=== PATIENT | male | born 1935 | race Caucasian/White ===

== ENCOUNTER 2018-10-25 07:40 | Outpatient (CLI) | payer MEDICARE ==
--- NOTE | 2018-10-25 09:19 | ULT ---
ABDOMINAL AORTIC ULTRASOUND: INDICATION: Abdominal aortic screening evaluation. Concern for aortic stenosis. FINDINGS: Overlying bowel gas slightly limits image detail of the luminal caliber of the aorta. No stacey aneur ysmal dilatation is evident. Proximal abdominal aorta measures 1.2 x 1.3 cm. The mid abdominal aorta measured 1.2 x 1.4 cm. The distal abdominal aorta measured 1.4 x 1.7 cm. IMPRESSION: 1. Limitations of the exam to evaluate the intraluminal caliber of the aorta. If there is concern f or aortic stenosis, a CTA examination of the abdomen and pelvis is recommended. 2. No stacey aneurysmal dilatation of the abdominal aorta. POS: TPC
== END 2018-10-25 07:41 | disposition home or self-care (01) ==
LOC: NAV ULT 07:40
PROVIDERS: ATTEND Orthopaedic Surgery Hand Surgery
DX: I35.0 Nonrheumatic aortic (valve) stenosis (principal)
CPT/HCPCS: 76775

== ENCOUNTER 2019-03-30 16:38 | Inpatient (IN) | payer MEDICARE ==
[2019-03-30] MEDS ORDERED: TYLENOL PO PRN (17:42)
[2019-03-30] MEDS ORDERED: Docusate 100 MG CAP PO PRN (17:44)
[2019-03-30] MEDS: metFORMIN 500 MG TAB PO SCH (20:48)
[2019-03-30] MEDS: Donepezil HCl 10 MG TAB PO SCH (20:48)
[2019-03-30] MEDS: Atorvastatin Calcium 40 MG TAB PO SCH (20:48)
[2019-03-31 05:53] LABS: #Basophils 0.1 thou/uL (0.0-0.2); #Eosinphils 0.6 thou/uL (0.0-0.7); #Lymphocytes 1.8 thou/uL (1.20-3.40); #Monocytes 0.6 thou/uL (0.11-0.59); #Neutrophils 3.9 thou/uL (1.40-6.50); %Basophils 0.9 % (0.0-1.0); %Eosinophils 8.8 % (0.0-10.0); %Monocytes 8.4 % (0.0-10.0); Hemoglobin 11.8 g/dL (14.0-18.0); Mean Corpuscular HGB CONC 32.1 g/dL (32.0-36.0); Mean Corpuscular Hemoglobin 29.8 pg (27.0-31.0); Mean Corpuscular Volume 92.9 fL (78.0-98.0); Mean Platelet Volume 7.7 fL (7.4-10.4); Platelet Count 201 thou/uL (130-400); RBC Distribution Width 12.2 % (11.5-14.5); Red Blood Cell (RBC) Count 3.96 mill/uL (4.70-6.10)
[2019-03-31 06:07] LABS: ALT (SGPT) 31 U/L (8-55); AST (SGOT) 23 U/L (5-34); Albumin 3.6 g/dL (3.4-4.8); Alkaline Phosphatase 96 U/L (40-150); Anion Gap 12 mmol/L (10-20); BUN (Urea Nitrogen) 19 mg/dL (8.4-25.7); Bilirubin, Total 0.5 mg/dL (0.2-1.2); Calc. Creatinine Clearance 54 mL/min (70-130); Calcium 9.6 mg/dL (7.8-10.44); Carbon Dioxide 26 mmol/L (23-31); Chloride 106 mmol/L (98-107); Estimated GFR-MDRD 56; Glucose 94 mg/dL (83-110); Protein, Total 5.6 g/dL (5.8-8.1); Sodium 140 mmol/L (136-145)
[2019-03-31] MEDS: Aspirin Chewable 81 MG TAB PO SCH (08:29)
[2019-03-31] MEDS: Tamsulosin HCl 0.4 MG CAP PO SCH (08:29)
[2019-03-31] MEDS: Donepezil HCl 10 MG TAB PO SCH ×2 (08:29→21:20)
[2019-03-31] MEDS: Citalopram 20 MG TAB PO SCH (08:29)
[2019-03-31] MEDS: metFORMIN 500 MG TAB PO SCH ×2 (08:30→21:20)
[2019-03-31] MEDS ORDERED: Prevnar 13-Val Conj/PF 0.5 ML SYRINGE IM ONE (09:00)
[2019-03-31] MEDS: MEMANTINE 28 MG PO SCH (09:53)
--- NOTE | 2019-03-31 10:39 | HP ---
CHIEF COMPLAINT: Dementia, frequent falls and deconditioning for therapy. BRIEF HISTORY: This is an 84-year-old male, who was admitted to [facility] after a fall. Initial concern was for CVA and he was admitted to the Stroke Unit. MRI of the brain showed volume loss without any evidence for hemorrhage or infarct. Echocardiogram showed preserved ejection fraction and diastolic dysfunction. Carotid artery ultrasound did not show any hemodynamically significant stenosis. Telemetry did not show any arrhythmia. He was felt to be a candidate for more therapy before discharge and so he was admitted here. The patient was seen on his way to therapy. He denies any questions or concerns. He does have a complex right arm fracture and currently in a brace from Orthopedic Surgery and has an outpatient appointment for followup. No family at bedside. PAST MEDICAL HISTORY: 1. Recent fall resulting in a proximal humerus shaft fracture as well as old right 5th through 8th rib fractures. 2. Hypertension. 3. Dyslipidemia. 4. Dementia. 5. Diabetes mellitus type 2. 6. Benign prostatic hypertrophy. 7. History of DVT. 8. Deconditioning. PAST SURGICAL HISTORY: 1. Appendectomy. 2. Right knee replacement. ALLERGIES: TO PENICILLIN. FAMILY HISTORY: Noncontributory to current admission. PSYCHOSOCIAL HISTORY: Denies any tobacco, alcohol, or recreational drug abuse. MEDICATIONS: He has been transferred here on the following medications, 1. Aspirin 81 mg daily. 2. Lipitor 40 mg daily. 3. Celexa 20 mg daily. 4. Colace 100 mg daily as needed. 5. Aricept 10 mg b.i.d. 6. Metformin 500 mg b.i.d. 7. Tylenol No. 4 q.6 p.r.n. 8. Namenda 28 mg ER daily. 9. Flomax 0.4 mg daily. REVIEW OF SYSTEMS: CARDIOVASCULAR: Denies any chest pain, shortness of breath, palpitations, PND, orthopnea, or pedal edema. RESPIRATORY: Denies any chronic cough, expectoration, or pleuritic type chest pain. GASTROINTESTINAL: Denies any nausea, vomiting, diarrhea, constipation, hematemesis, melena, or hematochezia. GENITOURINARY: Denies any frequency, urgency, dysuria, or hematuria. CENTRAL NERVOUS SYSTEM: Generalized weakness and frequent falls. Cognitive deficits, which are chronic. HEENT: Denies any difficulty in speech, vision, hearing, or swallowing. SKIN: Denies any rash. PHYSICAL EXAMINATION: GENERAL: Pleasant 84-year-old male, resting comfortably. Denies any concerns. VITAL SIGNS: He is afebrile, heart rate 58, respirations 18, oxygen saturation 93% on room air, and blood pressure is 161/82. HEENT: Normocephalic and atraumatic. Pupils are equally reactive to light and accommodation. NECK: No JVD, thyromegaly, cervical lymphadenopathy, or throat exudates. No carotid bruits. CARDIOVASCULAR: S1 and S2 plus. Rate and rhythm are regular. RESPIRATORY: Normal vesicular breath sounds heard in all lung sanchez. ABDOMEN: Soft, nontender. Bowel sounds heard in all quadrants. EXTREMITIES: Without cyanosis or clubbing. Right arm in a brace/splint. CENTRAL NERVOUS SYSTEM: Awake and responsive. Cognitive deficits, which are chronic. Generalized weakness. LABORATORY VALUES: White count was 7, H and H are 11.8 and 36.8. Sodium 140, potassium 4.0, BUN and creatinine are 19 and 1.24. Blood sugars are 93, 85, 91, 112, and 97. IMPRESSION: 1. Multiple recent falls and deconditioning for physical therapy. 2. Diabetes mellitus, type 2. 3. Hypertension. 4. Dyslipidemia. 5. Diastolic dysfunction in echocardiogram. 6. Benign prostatic hypertrophy. 7. Osteoarthritis. 8. Dementia. PLAN: 1. Continue current medication. Discharge medications from previous hospital. 2. 1800 calorie heart healthy ADA diet. 3. Accu-Cheks with sliding scale coverage. 4. Monitor blood pressure and adjust medications as needed. 5. DVT prophylaxis with PlexiPulses. 6. Decubitus precaution. 7. Stress ulcer prophylaxis. 8. PT/OT eval and treat. 9. Routine laboratory values. 10. Discussed with the patient and nursing in detail. All questions were answered. Job ID: [id number]
[2019-03-31] MEDS: Atorvastatin Calcium 40 MG TAB PO SCH (21:20)
[2019-04-01] MEDS: Aspirin Chewable 81 MG TAB PO SCH (09:03)
[2019-04-01] MEDS: Tamsulosin HCl 0.4 MG CAP PO SCH (09:03)
[2019-04-01] MEDS: Citalopram 20 MG TAB PO SCH (09:03)
[2019-04-01] MEDS: Donepezil HCl 10 MG TAB PO SCH ×2 (09:04→21:32)
[2019-04-01] MEDS: metFORMIN 500 MG TAB PO SCH ×2 (09:04→21:32)
[2019-04-01] MEDS: MEMANTINE 28 MG PO SCH (09:04)
--- NOTE | 2019-04-01 15:05 | PRG ---
DATE OF SERVICE: 04/01/2019 SUBJECTIVE: Mr. Quiroga is resting comfortably and denies any complaints, just finished his lunch. OBJECTIVE: VITAL SIGNS: He is afebrile. Heart rate 61, respirations 18, oxygen saturation 96% on room air, and blood pressure 142/70. CARDIOVASCULAR SYSTEM: S1 and S2 plus. RESPIRATORY SYSTEM: Normal vesicular breath sounds. ABDOMEN: Soft and nontender. Bowel sounds heard in all quadrants. EXTREMITIES: Without cyanosis or clubbing. CENTRAL NERVOUS SYSTEM: Awake and responsive. Generalized weakness. Grossly nonfocal. LABORATORY DATA: Blood sugars are 93, 131, 88, and 80. IMPRESSION: 1. Recent fall, resulting in proximal humeral shaft fracture. 2. Hypertension. 3. Dyslipidemia. 4. Diabetes mellitus type 2. 5. Benign prostatic hypertrophy. 6. Dementia. 7. Deconditioning. PLAN: 1. Continue current medications. 2. 1800-calorie heart-healthy ADA diet. 3. Accu-Cheks with sliding scale coverage. 4. Monitor blood pressure and adjust medications as needed. 5. Fall precautions. 6. Orthopedic precautions. 7. Routine laboratory values. 8. Physical therapy. 9. DVT and stress ulcer prophylaxis. The patient is active enough that he just needs PlexiPulse. Job ID: [id number]
[2019-04-01] MEDS: Atorvastatin Calcium 40 MG TAB PO SCH (21:32)
[2019-04-02] MEDS ORDERED: Acetaminophen/Codeine 30-300mg Tablet PO SCH (02:30)
[2019-04-02] MEDS: Donepezil HCl 10 MG TAB PO SCH ×2 (08:42→21:55)
[2019-04-02] MEDS: Tamsulosin HCl 0.4 MG CAP PO SCH (08:42)
[2019-04-02] MEDS: Aspirin Chewable 81 MG TAB PO SCH (08:42)
[2019-04-02] MEDS: Citalopram 20 MG TAB PO SCH (08:42)
[2019-04-02] MEDS: metFORMIN 500 MG TAB PO SCH ×2 (08:42→21:55)
[2019-04-02] MEDS: MEMANTINE 28 MG PO SCH (08:44)
--- NOTE | 2019-04-02 16:07 | PRG ---
DATE OF SERVICE: 04/02/2019 SUBJECTIVE: Mr. Quiroga is doing well. Denies any complaints. He is very happy with his progress and his care. No family at bedside. OBJECTIVE: VITAL SIGNS: He is afebrile, heart rate 58, respirations 18, oxygen saturation 96% on room air, and blood pressure 119/63. CARDIOVASCULAR: S1 and S2 plus. RESPIRATORY: Normal vesicular breath sounds. ABDOMEN: Soft and nontender. Bowel sounds heard in all quadrants. EXTREMITIES: Without cyanosis or clubbing. Right arm in specialized splint. CENTRAL NERVOUS SYSTEM: Awake and responsive. Generalized weakness. IMPRESSION: 1. Diabetes mellitus, type 2. 2. Hypertension. 3. Dyslipidemia. 4. Benign prostatic hypertrophy. 5. Deconditioning. 6. Recent fall with proximal humeral shaft fracture. PLAN: 1. Continue current medications. 2. 1800 calorie heart healthy ADA diet. 3. Accu-Cheks with sliding scale coverage. 4. Monitor blood pressure and adjust medications as needed. 5. Orthopedic precautions with use of splint at all times. 6. Physical therapy. 7. Routine laboratory values. 8. Discussed with the patient and nursing in detail. All questions were answered. Job ID: [id number]
[2019-04-02] MEDS: Atorvastatin Calcium 40 MG TAB PO SCH (21:55)
[2019-04-03] MEDS: Citalopram 20 MG TAB PO SCH (09:37)
[2019-04-03] MEDS: metFORMIN 500 MG TAB PO SCH ×2 (09:37→20:17)
[2019-04-03] MEDS: Aspirin Chewable 81 MG TAB PO SCH (09:37)
[2019-04-03] MEDS: Donepezil HCl 10 MG TAB PO SCH ×2 (09:37→20:17)
[2019-04-03] MEDS: Tamsulosin HCl 0.4 MG CAP PO SCH (09:38)
[2019-04-03] MEDS: MEMANTINE 28 MG PO SCH (09:41)
--- NOTE | 2019-04-03 12:48 | PRG ---
DATE OF SERVICE: 04/03/2019 SUBJECTIVE: Mr. Quiroga is up in the side of his bed, getting ready to eat his lunch. His spouse is in the room. They are happy with his progress. No concerns or questions. OBJECTIVE: VITAL SIGNS: He is afebrile, heart rate 60, respirations 18, oxygen saturation 98% on room air, blood pressure 133/75. CARDIOVASCULAR: S1 and s2 plus. RESPIRATORY: Normal vesicular breath sounds. ABDOMEN: Soft, nontender. Bowel sounds heard in all quadrants. EXTREMITIES: Without cyanosis or clubbing. Right arm in a complex brace. CENTRAL NERVOUS SYSTEM: Awake and responsive. Generalized weakness. IMPRESSION: 1. Recent fall with right humerus fracture. 2. Diabetes mellitus, type 2, well controlled. 3. Hypertension. 4. Dyslipidemia. 5. Benign prostatic hypertrophy. 6. Deconditioning. PLAN: 1. Continue current medications. 2. 1800-calorie heart healthy ADA diet. 3. Accu-Cheks with sliding scale coverage. 4. Orthopedic precautions. 5. Physical therapy. 6. DVT and stress ulcer prophylaxis. 7. Routine laboratory values. 8. Discussed with patient and family in detail. All questions were answered. His blood sugars are 100, 89, 94, 86, 126, and 92. Job ID: [id number]
[2019-04-03] MEDS: Atorvastatin Calcium 40 MG TAB PO SCH (20:17)
[2019-04-04] MEDS: Aspirin Chewable 81 MG TAB PO SCH (09:06)
[2019-04-04] MEDS: Citalopram 20 MG TAB PO SCH (09:07)
[2019-04-04] MEDS: Donepezil HCl 10 MG TAB PO SCH ×2 (09:07→20:42)
[2019-04-04] MEDS: Tamsulosin HCl 0.4 MG CAP PO SCH (09:07)
[2019-04-04] MEDS: metFORMIN 500 MG TAB PO SCH ×2 (09:07→20:42)
[2019-04-04] MEDS: MEMANTINE 28 MG PO SCH (09:08)
--- NOTE | 2019-04-04 13:21 | PRG ---
DATE OF SERVICE: 04/04/2019 SUBJECTIVE: Mr. Quiroga is doing well, resting in bed, just finished his lunch. He is happy with his progress. No family at bedside. OBJECTIVE: VITAL SIGNS: He is afebrile, heart rate 57, respirations 16, oxygen saturation 96% on room air, blood pressure 122/63. CARDIOVASCULAR SYSTEM: S1 and S2 plus. RESPIRATORY SYSTEM: Normal vesicular breath sounds. ABDOMEN: Soft and nontender. Bowel sounds heard in all quadrants. EXTREMITIES: Without cyanosis or clubbing. Right arm in a brace. CENTRAL NERVOUS SYSTEM: Awake and responsive. Generalized weakness. LABORATORY DATA: Blood sugars are 94, 87, 135, 87, and 89. IMPRESSION: 1. Status post fall and right humerus fracture. 2. Diabetes mellitus, type 2. 3. Hypertension. 4. Dyslipidemia. 5. BPH. 6. Deconditioning. 7. Mild dementia. PLAN: 1. Continue current medications. 2. 1800-calorie heart healthy ADA diet. 3. Accu-Cheks with sliding scale coverage. 4. Orthopedic precautions. 5. DVT and stress ulcer prophylaxis. The patient really does not need any due to him being pretty active. 6. Routine laboratory values. 7. Continue therapy. Job ID: [id number]
[2019-04-04] MEDS: Atorvastatin Calcium 40 MG TAB PO SCH (20:42)
[2019-04-05] MEDS: Donepezil HCl 10 MG TAB PO SCH ×2 (08:24→21:05)
[2019-04-05] MEDS: Citalopram 20 MG TAB PO SCH (08:24)
[2019-04-05] MEDS: Tamsulosin HCl 0.4 MG CAP PO SCH (08:24)
[2019-04-05] MEDS: Aspirin Chewable 81 MG TAB PO SCH (08:24)
[2019-04-05] MEDS: metFORMIN 500 MG TAB PO SCH ×2 (08:24→21:05)
[2019-04-05] MEDS: MEMANTINE 28 MG PO SCH (08:27)
--- NOTE | 2019-04-05 13:10 | PRG ---
DATE OF SERVICE: 04/05/2019 SUBJECTIVE: Mr. Quiroga is up in bed and just finished his lunch. He apparently has an appointment with his orthopedic surgeon for followup on his right humerus fracture. He denies any questions or concerns. No family at bedside. OBJECTIVE: VITAL SIGNS: He is afebrile. Heart rate 61, respirations 16, oxygen saturation 95% on room air, and blood pressure 123/60. CARDIOVASCULAR SYSTEM: S1 and S2 plus. RESPIRATORY SYSTEM: Normal vesicular breath sounds. ABDOMEN: Soft and nontender. Bowel sounds heard in all quadrants. EXTREMITIES: Without cyanosis or clubbing. Complex brace/splint to his right arm. CENTRAL NERVOUS SYSTEM: Awake and responsive. Generalized weakness. IMPRESSION: 1. Recent fall with right humerus fracture. 2. Diabetes mellitus, type 2. 3. Hypertension. 4. Dyslipidemia. 5. Benign prostatic hypertrophy. 6. Deconditioning. 7. Mild dementia. PLAN: 1. Continue current medications. 2. 1800 calorie heart healthy ADA diet. 3. Accu-Cheks with sliding scale coverage. His blood sugars are excellent at 89, 89, 75, 87, and 88. 4. Continue orthopedic precautions. 5. Fall precautions. 6. DVT and stress ulcer prophylaxis. 7. Routine laboratory values. 8. Continue therapy. Job ID: [id number]
[2019-04-05] MEDS: Atorvastatin Calcium 40 MG TAB PO SCH (21:05)
[2019-04-06] MEDS: Donepezil HCl 10 MG TAB PO SCH ×2 (08:49→20:29)
[2019-04-06] MEDS: Citalopram 20 MG TAB PO SCH (08:49)
[2019-04-06] MEDS: Tamsulosin HCl 0.4 MG CAP PO SCH (08:49)
[2019-04-06] MEDS: metFORMIN 500 MG TAB PO SCH ×2 (08:49→20:29)
[2019-04-06] MEDS: Aspirin Chewable 81 MG TAB PO SCH (08:50)
[2019-04-06] MEDS: MEMANTINE 28 MG PO SCH (08:53)
--- NOTE | 2019-04-06 14:11 | PRG ---
DATE OF SERVICE: 04/06/2019 SUBJECTIVE: Mr. Quiroga is doing the same. Denies any complaints. He had a followup appointment with Orthopedic Surgery yesterday. No family at bedside. OBJECTIVE: VITAL SIGNS: He is afebrile. Heart rate 90, respirations 18, oxygen saturation 95% on room air, and blood pressure 119/70. CARDIOVASCULAR SYSTEM: S1 and S2 plus. RESPIRATORY SYSTEM: Normal vesicular breath sounds. ABDOMEN: Soft and nontender. Bowel sounds heard in all quadrants. EXTREMITIES: Without cyanosis or clubbing. CENTRAL NERVOUS SYSTEM: Awake and responsive. Generalized weakness. LABORATORY DATA: Blood sugars are 88, 190, 91, 89, and 92. IMPRESSION: 1. Status post fall and right humerus fracture on conservative management at present. 2. Diabetes mellitus type 2. 3. Hypertension. 4. Dyslipidemia. 5. Benign prostatic hypertrophy. 6. Deconditioning. 7. Mild dementia. PLAN: 1. Continue current medications. 2. Nutritional support. 3. 1800-calorie heart healthy ADA diet. 4. Accu-Cheks with sliding scale coverage. 5. Physical Therapy. 6. Orthopedic precautions. 7. Routine laboratory values. Job ID: [id number]
[2019-04-06] MEDS: Atorvastatin Calcium 40 MG TAB PO SCH (20:29)
[2019-04-07] MEDS: Citalopram 20 MG TAB PO SCH (08:35)
[2019-04-07] MEDS: metFORMIN 500 MG TAB PO SCH ×2 (08:36→20:48)
[2019-04-07] MEDS: Donepezil HCl 10 MG TAB PO SCH ×2 (08:36→20:48)
[2019-04-07] MEDS: Aspirin Chewable 81 MG TAB PO SCH (08:36)
[2019-04-07] MEDS: Tamsulosin HCl 0.4 MG CAP PO SCH (08:36)
[2019-04-07] MEDS: MEMANTINE 28 MG PO SCH (08:41)
[2019-04-07] MEDS: Atorvastatin Calcium 40 MG TAB PO SCH (20:48)
[2019-04-08] MEDS: metFORMIN 500 MG TAB PO SCH ×2 (08:20→21:17)
[2019-04-08] MEDS: Tamsulosin HCl 0.4 MG CAP PO SCH (08:20)
[2019-04-08] MEDS: Donepezil HCl 10 MG TAB PO SCH ×2 (08:20→21:17)
[2019-04-08] MEDS: Aspirin Chewable 81 MG TAB PO SCH (08:20)
[2019-04-08] MEDS: Citalopram 20 MG TAB PO SCH (08:20)
[2019-04-08] MEDS: MEMANTINE 28 MG PO SCH (08:23)
[2019-04-08] MEDS: Atorvastatin Calcium 40 MG TAB PO SCH (21:17)
[2019-04-09] MEDS: Donepezil HCl 10 MG TAB PO SCH ×2 (09:18→20:50)
[2019-04-09] MEDS: Tamsulosin HCl 0.4 MG CAP PO SCH (09:18)
[2019-04-09] MEDS: metFORMIN 500 MG TAB PO SCH ×2 (09:18→20:49)
[2019-04-09] MEDS: Citalopram 20 MG TAB PO SCH (09:18)
[2019-04-09] MEDS: MEMANTINE 28 MG PO SCH (09:18)
[2019-04-09] MEDS: Aspirin Chewable 81 MG TAB PO SCH (09:18)
[2019-04-09 20:40] VITALS: BMI 26.6
[2019-04-09] MEDS: Atorvastatin Calcium 40 MG TAB PO SCH (20:50)
--- NOTE | 2019-04-09 21:19 | PRG ---
DATE OF SERVICE: 04/09/[address] Deysi Miles. SUBJECTIVE: The patient feels well with no complaints. Resting in the bed, waiting for more therapy tomorrow. Still has some soreness in his arm, but is stable. OBJECTIVE: VITAL SIGNS: Show temperature is 96.8, pulse 62, respirations 20, O2 sats 95% on room air, and blood pressure is 119/75. LUNGS: Clear. CARDIAC: Showed regular rhythm. SKIN AND EXTREMITIES: Right arm is in a clamshell splint. Skin and extremities showed no edema otherwise, clubbing, or cyanosis. ASSESSMENT: 1. Resolving right humeral fracture. 2. Stable hypertension. 3. Stable type 2 diabetes, controlled to goal. PLAN: 1. Continue PT/OT. 2. Continue pain relief as needed. 3. Continue Accu-Cheks to monitor and titrate and control diabetes. 4. Continue stress ulcer and DVT prophylaxis. Job ID: [id number]
--- NOTE | 2019-04-09 21:26 | PRG ---
DATE OF SERVICE: 04/08/2019 SUBJECTIVE: The patient is an 84-year-old white male, patient of Dr. Deysi Miles, admitted to [facility] for therapy after fall and right humerus fracture, on conservative management. He has done well with therapy and had a followup with Orthopedic Surgery recently who states to continue conservative treatment. He is working with therapy and he has a history of diabetes which has been well controlled. OBJECTIVE: VITAL SIGNS: Blood pressure is 132/75, temperature is 98, pulse 63, respirations 20, O2 sats 93% on room air. LUNGS: Clear. CARDIAC EXAMINATION: Shows regular rhythm. ABDOMEN: Soft and nontender. EXTREMITIES: Right arm is in a clamshell. ASSESSMENT: 1. Resolving right humeral fracture. 2. Stable type 2 diabetes with Accu-Cheks; controlled from 83 to 110. 3. Stable hypertension. 4. Stable benign prostatic hypertrophy. PLAN: 1. Continue PT/OT. 2. Continue Accu-Cheks to monitor and titrate and control diabetes. 3. Continue to monitor blood pressure and continue home medications. Job ID: [id number]
[2019-04-10] MEDS: metFORMIN 500 MG TAB PO SCH ×2 (09:00→21:05)
[2019-04-10] MEDS: Citalopram 20 MG TAB PO SCH (09:00)
[2019-04-10] MEDS: Tamsulosin HCl 0.4 MG CAP PO SCH (09:00)
[2019-04-10] MEDS: Aspirin Chewable 81 MG TAB PO SCH (09:00)
[2019-04-10] MEDS: Donepezil HCl 10 MG TAB PO SCH ×2 (09:00→21:06)
[2019-04-10] MEDS: MEMANTINE 28 MG PO SCH (09:03)
--- NOTE | 2019-04-10 13:51 | PRG ---
DATE OF SERVICE: 04/10/2019 SUBJECTIVE: Mr. Quiroga is doing well. Denies any complaints. He had a restful weekend. No family at bedside. Discussed with nursing. OBJECTIVE: VITAL SIGNS: He is afebrile, heart rate 59, respirations 18, oxygen saturation 93% on room air, blood pressure 113/69. CARDIOVASCULAR SYSTEM: S1 and S2 plus. RESPIRATORY SYSTEM: Normal vesicular breath sounds. ABDOMEN: Soft, nontender. Bowel sounds heard in all quadrants. EXTREMITIES: Without cyanosis or clubbing. Right arm in a brace. CENTRAL NERVOUS SYSTEM: Awake and responsive. Generalized weakness. LABORATORY DATA: Blood sugars are 98, 87, 122, 98, and 105. IMPRESSION: 1. Status post fall and right arm fracture, currently managed conservatively. 2. Diabetes mellitus, type 2. 3. Hypertension. 4. Dyslipidemia. 5. Benign prostatic hypertrophy. 6. Deconditioning. 7. Mild dementia. PLAN: 1. Continue current medications. 2. 1800-calorie heart healthy ADA diet. 3. Accu-Cheks with sliding scale coverage. 4. Orthopedic precautions. 5. Continue physical therapy and occupational therapy. 6. DVT prophylaxis, the patient is pretty active and does not need any. 7. Decubitus precaution. 8. Routine laboratory values. We will recheck CBC and BMP tomorrow. Job ID: [id number]
[2019-04-10] MEDS: Atorvastatin Calcium 40 MG TAB PO SCH (21:05)
[2019-04-11 05:58] LABS: #Basophils 0.1 thou/uL (0.0-0.2); #Eosinphils 0.6 thou/uL (0.0-0.7); #Lymphocytes 1.8 thou/uL (1.20-3.40); #Monocytes 0.5 thou/uL (0.11-0.59); #Neutrophils 4.2 thou/uL (1.40-6.50); %Basophils 1.1 % (0.0-1.0); %Eosinophils 7.9 % (0.0-10.0); %Lymphocytes 25.4 % (21.0-51.0); %Monocytes 7.4 % (0.0-10.0); %Neutrophils 58.3 % (42.0-75.0); Hemoglobin 11.7 g/dL (14.0-18.0); Mean Corpuscular HGB CONC 33.7 g/dL (32.0-36.0); Mean Corpuscular Hemoglobin 30.5 pg (27.0-31.0); Mean Corpuscular Volume 90.4 fL (78.0-98.0); Mean Platelet Volume 7.3 fL (7.4-10.4); Platelet Count 211 thou/uL (130-400); RBC Distribution Width 11.4 % (11.5-14.5); Red Blood Cell (RBC) Count 3.83 mill/uL (4.70-6.10); White Blood Cell (WBC) Count 7.2 thou/uL (4.8-10.8)
[2019-04-11] MEDS: metFORMIN 500 MG TAB PO SCH ×2 (08:35→20:56)
[2019-04-11] MEDS: Donepezil HCl 10 MG TAB PO SCH ×2 (08:36→20:56)
[2019-04-11] MEDS: Aspirin Chewable 81 MG TAB PO SCH (08:36)
[2019-04-11] MEDS: Citalopram 20 MG TAB PO SCH (08:36)
[2019-04-11] MEDS: MEMANTINE 28 MG PO SCH (08:37)
[2019-04-11] MEDS: Tamsulosin HCl 0.4 MG CAP PO SCH (08:38)
[2019-04-11 08:48] LABS: Anion Gap 15 mmol/L (10-20); BUN (Urea Nitrogen) 14 mg/dL (8.4-25.7); Calc. Creatinine Clearance 64 mL/min (70-130); Calcium 9.4 mg/dL (7.8-10.44); Carbon Dioxide 23 mmol/L (23-31); Chloride 108 mmol/L (98-107); Estimated GFR-MDRD 67; Glucose 93 mg/dL (83-110); Potassium 3.8 mmol/L (3.5-5.1); Sodium 142 mmol/L (136-145)
--- NOTE | 2019-04-11 13:47 | PRG ---
DATE OF SERVICE: 04/11/2019 SUBJECTIVE: Mr. Quiroga is doing well. Denies any complaints. Wonders when he is ready to go home. Apparently, nursing checked with Therapy and noted that he is ready to go home pretty much any time, but they are concerned about managing the brace. Mrs. Quiroga apparently talked to Therapy and wants to take him home on to give her some more time to reacclimatize with getting the brace on and off. OBJECTIVE: VITAL SIGNS: He is afebrile. Heart rate 66, respirations 16, oxygen saturation 96% on room air, blood pressure 93/61. CARDIOVASCULAR: S1-S2 plus. RESPIRATORY: Normal vesicular breath sounds. ABDOMEN: Soft, nontender. Bowel sounds in all quadrants. EXTREMITIES: Without cyanosis, clubbing. Right arm in a brace CENTRAL NERVOUS SYSTEM: Awake and responsive. Generalized weakness. LABORATORY VALUES: White count is 7.2, H and H are 11.7 and 34.6. Sodium 142, potassium 3.8, BUN and creatinine are 14 and 1.05. Blood sugars are 105, 88, 92, and 91. IMPRESSION: 1. Diabetes mellitus, type 2. 2. Hypertension. 3. Dyslipidemia. 4. Benign prostatic hypertrophy. 5. Deconditioning. 6. Dementia. 7. Status post fall and right arm fracture. PLAN: 1. Continue current medications. 2. 1800-calorie heart-healthy ADA diet. 3. Accu-Cheks with sliding scale coverage. 4. Orthopedic precautions. 5. Continue physical therapy. 6. Discharge planning. 7. The patient's family states that he had [facility], so we will make them aware. 8. They state they do not need any refills. 9. Discharge when everything is arranged. Job ID: [id number]
[2019-04-11] MEDS: Atorvastatin Calcium 40 MG TAB PO SCH (20:56)
[2019-04-12] MEDS: Citalopram 20 MG TAB PO SCH (08:22)
[2019-04-12] MEDS: Tamsulosin HCl 0.4 MG CAP PO SCH (08:22)
[2019-04-12] MEDS: metFORMIN 500 MG TAB PO SCH ×2 (08:22→21:52)
[2019-04-12] MEDS: Aspirin Chewable 81 MG TAB PO SCH (08:22)
[2019-04-12] MEDS: MEMANTINE 28 MG PO SCH (08:22)
[2019-04-12] MEDS: Donepezil HCl 10 MG TAB PO SCH ×2 (08:22→21:52)
--- NOTE | 2019-04-12 13:05 | PRG ---
DATE OF SERVICE: 04/12/2019 SUBJECTIVE: Mr. Quiroga is doing well. Denies any complaints. Resting in bed. No family at bedside. Apparently, his is going to come by about 11 tomorrow to pick him up. OBJECTIVE: VITAL SIGNS: He is afebrile. Heart rate 57, respirations 18, oxygen saturation 96% on room air, and blood pressure 119/72. CARDIOVASCULAR: S1 and S2 plus. RESPIRATORY: Normal vesicular breath sounds. ABDOMEN: Soft, nontender. Bowel sounds heard in all quadrants. EXTREMITIES: Without cyanosis or clubbing. Blood sugars are 91, 81, 103, 87, and 84. Left arm in a sling. CENTRAL NERVOUS SYSTEM: Awake and responsive. Generalized weakness. IMPRESSION: 1. Status post fall and left humerus fracture. 2. Diabetes mellitus type 2. 3. Hypertension. 4. Dyslipidemia. 5. Benign prostatic hypertrophy. 6. Improving deconditioning. 7. Dementia. PLAN: 1. Continue current medications. 2. 1800 calorie heart healthy ADA diet. 3. Accu-Cheks with sliding scale coverage. 4. Orthopedic precautions. 5. Discharge planning. 6. He states he does not need any refills. I checked this with his as well. We will complete discharge plan, so his can pick him up at any time tomorrow. Nursing has already informed [facility]. The home health will be managed by his PCP, Dr. Flower. Job ID: [id number]
[2019-04-12] MEDS: Atorvastatin Calcium 40 MG TAB PO SCH (21:52)
[2019-04-13 07:37] VITALS: BP 122/71; TEMP 97.6
[2019-04-13] MEDS: Citalopram 20 MG TAB PO SCH (08:37)
[2019-04-13] MEDS: Aspirin Chewable 81 MG TAB PO SCH (08:37)
[2019-04-13] MEDS: Donepezil HCl 10 MG TAB PO SCH (08:37)
[2019-04-13] MEDS: Tamsulosin HCl 0.4 MG CAP PO SCH (08:37)
[2019-04-13] MEDS: metFORMIN 500 MG TAB PO SCH (08:37)
[2019-04-13] MEDS: MEMANTINE 28 MG PO SCH (08:38)
--- NOTE | 2019-04-13 14:13 | DIS ---
DATE OF ADMISSION: 03/30/2019 DATE OF DISCHARGE: 04/13/2019 PRINCIPAL DIAGNOSES: Status post fall and right humerus fracture, on conservative management. SECONDARY DIAGNOSES: 1. Diabetes mellitus, type 2. 2. Hypertension. 3. Dyslipidemia. 4. Mild dementia. 5. Benign prostatic hypertrophy. 6. Deconditioning. 7. History of deep venous thrombosis. 8. Old right 5th through 8th rib fractures. COMPLICATIONS: None. ADVERSE REACTIONS: None. PROCEDURES: None. CONSULTATIONS: Physical Therapy and Occupational Therapy. HOSPITAL COURSE: The patient was admitted on 03/30 after suffering a fall. His workup was negative for CVA. He was felt to be a candidate for inpatient rehabilitation and transferred here. He was placed on a complex orthopedic brace for his right humerus fracture. He has improved gradually, but steadily with no complications, and he was felt safe to go home with home health. His is comfortable taking his brace off and putting it back on. He states that he does not need any prescriptions. He will follow with his primary care physician. He apparently had home health before with [facility] and they want to continue with them. [facility] has been informed to send all paperwork to Dr. Flower, who is his PCP. PHYSICAL EXAMINATION: VITAL SIGNS: On the day of discharge, he is afebrile, heart rate 55, respirations 18, oxygen saturation 95% on room air, and blood pressure 122/71. CARDIOVASCULAR SYSTEM: S1 and S2 plus. RESPIRATORY SYSTEM: Normal vesicular breath sounds. ABDOMEN: Soft and nontender. Bowel sounds heard in all quadrants. EXTREMITIES: Without cyanosis or clubbing. Right arm in a brace. CENTRAL NERVOUS SYSTEM: Awake and responsive. Generalized weakness. DISCHARGE MEDICATIONS: Same as admission, which is; 1. Aspirin 81 mg daily. 2. Lipitor 40 mg daily. 3. Celexa 20 mg daily. 4. Colace 100 mg p.o. daily as needed. 5. Aricept 10 mg b.i.d. 6. Metformin 500 mg b.i.d. 7. Tylenol No. 4 q.6 p.r.n. 8. Namenda 28 mg extended release daily. 9. Tamsulosin 0.4 mg daily. DIET: 1800 calorie diet. ACTIVITY: As tolerated. DISCHARGE INSTRUCTIONS: Orthopedic restrictions. Outpatient followup with PCP and orthopedic surgeon. The patient was advised to call us with any questions or concerns. Discussed with the patient and spouse in detail. All questions answered. Total time spent on this discharge 35 minutes. Job ID: [id number]
== END 2019-04-13 11:45 | disposition home health service (06) | DRG 561 ==
LOC: NAV ACUTE 16:38
PROVIDERS: ADMIT Internal Medicine; ATTEND Internal Medicine
DX: S42.301D Unspecified fracture of shaft of humerus, right arm, subsequent encounter for fracture with routine healing (principal); F03.90 Unspecified dementia, unspecified severity, without behavioral disturbance, psychotic disturbance, mood disturbance, and anxiety; E78.5 Hyperlipidemia, unspecified; E11.9 Type 2 diabetes mellitus without complications; N40.0 Benign prostatic hyperplasia without lower urinary tract symptoms; Z96.651 Presence of right artificial knee joint; I10 Essential (primary) hypertension; M19.90 Unspecified osteoarthritis, unspecified site; W19.XXXD Unspecified fall, subsequent encounter; Z87.81 Personal history of (healed) traumatic fracture; Z86.718 Personal history of other venous thrombosis and embolism; Z88.0 Allergy status to penicillin; Z79.82 Long term (current) use of aspirin; Z79.84 Long term (current) use of oral hypoglycemic drugs; Z91.81 History of falling
CPT/HCPCS: 36415; 36416; 80048; 80053; 85025

== ENCOUNTER 2019-10-15 15:29 | Emergency (ER) | payer MEDICARE ==
--- NOTE | 2019-10-15 16:38 | RAD ---
Exam: Chest one view HISTORY:Fever. Cough. Comparison: 03/24/2019 FINDINGS: Cardiac silhouette: Normal Aorta: Atherosclerosis Pulmonary vessels: Normal Costophrenic angles: Clear LUNGS: Chronic lung parenchymal changes. Left lower lobe infiltrate.. Pneumothorax: None Osseous abnormalities: None IMPRESSION: 1. Left lower lobe infiltrate, superimposed upon chronic changes. Continued surveillance.
[2019-10-15 16:46] LABS: #Eosinphils 0.1 thou/uL (0.0-0.7); #Lymphocytes 1.2 thou/uL (1.20-3.40); #Monocytes 0.6 thou/uL (0.11-0.59); #Neutrophils 4.8 thou/uL (1.40-6.50); %Basophils 0.3 % (0.0-1.0); %Lymphocytes 17.9 % (21.0-51.0); %Monocytes 9.3 % (0.0-10.0); %Neutrophils 71.5 % (42.0-75.0); Hemoglobin 13.1 g/dL (14.0-18.0); Mean Corpuscular HGB CONC 32.9 g/dL (32.0-36.0); Mean Corpuscular Hemoglobin 30.7 pg (27.0-31.0); Mean Corpuscular Volume 93.4 fL (78.0-98.0); Mean Platelet Volume 7.5 fL (7.4-10.4); Platelet Count 183 thou/uL (130-400); RBC Distribution Width 11.5 % (11.5-14.5); Red Blood Cell (RBC) Count 4.28 mill/uL (4.70-6.10); White Blood Cell (WBC) Count 6.7 thou/uL (4.8-10.8)
[2019-10-15] MEDS ORDERED: cefTRIAXone\\ROCEPHIN 1 GM VIAL ONE (16:56)
[2019-10-15 17:01] LABS: ALT (SGPT) 18 U/L (8-55); AST (SGOT) 14 U/L (5-34); Albumin 3.6 g/dL (3.4-4.8); Alkaline Phosphatase 89 U/L (40-110); Anion Gap 13 mmol/L (10-20); BUN (Urea Nitrogen) 13 mg/dL (8.4-25.7); Bilirubin, Total 0.6 mg/dL (0.2-1.2); Calc. Creatinine Clearance 0 mL/min (70-130); Calcium 8.8 mg/dL (7.8-10.44); Carbon Dioxide 23 mmol/L (23-31); Chloride 108 mmol/L (98-107); Estimated GFR-MDRD 56; Globulin 2.2 g/dL (2.4-3.5); Glucose 129 mg/dL (83-110); Potassium 3.4 mmol/L (3.5-5.1); Protein, Total 5.8 g/dL (5.8-8.1); Sodium 141 mmol/L (136-145)
== END 2019-10-15 17:48 | disposition home or self-care (01) ==
LOC: NAV ERS 15:29
DX: J18.9 Pneumonia, unspecified organism (principal); E11.9 Type 2 diabetes mellitus without complications; I10 Essential (primary) hypertension; E78.00 Pure hypercholesterolemia, unspecified; F32.9 Major depressive disorder, single episode, unspecified; Z79.82 Long term (current) use of aspirin; Z86.718 Personal history of other venous thrombosis and embolism; Z79.899 Other long term (current) drug therapy; Z79.84 Long term (current) use of oral hypoglycemic drugs
CPT/HCPCS: 36415; 71045; 80053; 83605; 85025; 87040; 87804; 94760; 96374; J0696

== ENCOUNTER 2020-02-01 08:53 | Emergency (ER) | payer MEDICARE ==
[2020-02-01 10:05] LABS: #Basophils 0.1 thou/uL (0.0-0.2); #Eosinphils 0.3 thou/uL (0.0-0.7); #Lymphocytes 1.6 thou/uL (1.20-3.40); #Monocytes 0.6 thou/uL (0.11-0.59); #Neutrophils 6.3 thou/uL (1.40-6.50); %Basophils 0.6 % (0.0-1.0); %Eosinophils 3.3 % (0.0-10.0); %Lymphocytes 17.8 % (21.0-51.0); %Monocytes 6.4 % (0.0-10.0); Hemoglobin 13.2 g/dL (14.0-18.0); Mean Corpuscular HGB CONC 32.4 g/dL (32.0-36.0); Mean Corpuscular Volume 95.9 fL (78.0-98.0); Mean Platelet Volume 7.9 fL (7.4-10.4); Platelet Count 168 thou/uL (130-400); RBC Distribution Width 11.9 % (11.5-14.5); Red Blood Cell (RBC) Count 4.25 mill/uL (4.70-6.10); White Blood Cell (WBC) Count 8.8 thou/uL (4.8-10.8)
--- NOTE | 2020-02-01 10:11 | CT ---
CT CERVICAL SPINE NONCONTRAST: DATE: 02/01/2020 HISTORY: cervical trauma. 84-year-old male status post fall. FINDINGS: There are no jumped or perched facets. There is no evidence of acute fracture. The vertebral body hei ghts are maintained. There is no prevertebral soft tissue swelling. There are degenerative disc changes and facet osteoarthrosis. There is diffuse osteopenia. IMPRESSION: 1) Cervical spondylosis and diffuse osteopenia. 2) no evidence of acute fracture or acute traumatic subluxation.
--- NOTE | 2020-02-01 10:12 | CT ---
CT BRAIN WITHOUT CONTRAST: HISTORY:Fall, headache COMPARISON:03/24/2019 FINDINGS: There are foci of decreased attenuation in the periventricular white matter, consistent with chronic small vessel ischemic disease. Changes of cortical atrophy are stable. No evidence of acute infarct, hemorrhage, midline shift or abnormal extra-axial fluid collections is seen. The ventricular size is appropriate and the basilar cisterns are patent. The bony calvarium is intact. The visualized paranasal sinuses and mastoid air cells are well aerated. IMPRESSION: No CT evidence of acute intracranial process.
[2020-02-01 10:16] LABS: ALT (SGPT) 25 U/L (8-55); AST (SGOT) 18 U/L (5-34); Albumin 3.8 g/dL (3.4-4.8); Alkaline Phosphatase 91 U/L (40-110); Anion Gap 13 mmol/L (10-20); BUN (Urea Nitrogen) 16 mg/dL (8.4-25.7); Bilirubin, Total 0.6 mg/dL (0.2-1.2); Calc. Creatinine Clearance 0 mL/min (70-130); Calcium 9.2 mg/dL (7.8-10.44); Carbon Dioxide 25 mmol/L (23-31); Chloride 107 mmol/L (98-107); Estimated GFR-MDRD 53; Globulin 2.1 g/dL (2.4-3.5); Glucose 95 mg/dL (83-110); Potassium 4.3 mmol/L (3.5-5.1); Protein, Total 5.9 g/dL (5.8-8.1); Sodium 141 mmol/L (136-145)
== END 2020-02-01 12:30 | disposition home or self-care (01) ==
LOC: NAV ERS 08:53
DX: S09.90XA Unspecified injury of head, initial encounter (principal); S01.511A Laceration without foreign body of lip, initial encounter; S51.812A Laceration without foreign body of left forearm, initial encounter; R55 Syncope and collapse; F32.9 Major depressive disorder, single episode, unspecified; I10 Essential (primary) hypertension; E78.00 Pure hypercholesterolemia, unspecified; N40.0 Benign prostatic hyperplasia without lower urinary tract symptoms; Z86.718 Personal history of other venous thrombosis and embolism; Z79.899 Other long term (current) drug therapy; Z79.84 Long term (current) use of oral hypoglycemic drugs; E11.9 Type 2 diabetes mellitus without complications; W18.2XXA Fall in (into) shower or empty bathtub, initial encounter
CPT/HCPCS: 12011; 70450; 72125; 80053; 84484; 85025; 93005

== ENCOUNTER 2021-08-22 13:34 | Inpatient (IN) | payer OTHER, MEDICARE ==
[2021-08-22] MEDS ORDERED: Senokot S 8.6-50 MG TAB PO PRN (16:37)
[2021-08-22] MEDS ORDERED: Dextrose 50% Abboject 50 ML SYRINGE SLOW IVP PRN (16:37)
[2021-08-22] MEDS ORDERED: Ondansetron ODT 4 MG TAB PO PRN (16:37)
[2021-08-22] MEDS ORDERED: HumaLOG 300 UNITS/3 ML VIAL SC PRN (16:37)
[2021-08-22] MEDS ORDERED: carBAMazepine 200 MG TAB PO SCH (18:30)
[2021-08-22] MEDS ORDERED: metFORMIN 500 MG TAB PO SCH (18:30)
[2021-08-22] MEDS: Donepezil HCl 10 MG TAB PO SCH (21:59)
[2021-08-22] MEDS: Famotidine 20 MG TAB PO SCH (21:59)
[2021-08-23 07:15] LABS: #Basophils 0.1 thou/uL (0.0-0.2); #Eosinphils 0.4 thou/uL (0.0-0.7); #Lymphocytes 2.2 thou/uL (1.20-3.40); #Monocytes 1.1 thou/uL (0.11-0.59); #Neutrophils 9.2 thou/uL (1.40-6.50); %Basophils 0.8 % (0.0-1.0); %Eosinophils 2.8 % (0.0-10.0); %Lymphocytes 16.7 % (21.0-51.0); %Monocytes 8.2 % (0.0-10.0); %Neutrophils 71.5 % (42.0-75.0); Hemoglobin 16.6 g/dL (14.0-18.0); Mean Corpuscular HGB CONC 33.3 g/dL (32.0-36.0); Mean Corpuscular Hemoglobin 32.6 pg (27.0-31.0); Mean Corpuscular Volume 97.8 fL (78.0-98.0); Mean Platelet Volume 6.8 fL (7.4-10.4); Platelet Count 253 thou/uL (130-400); RBC Distribution Width 12.2 % (11.5-14.5); Red Blood Cell (RBC) Count 5.09 mill/uL (4.70-6.10); White Blood Cell (WBC) Count 12.9 thou/uL (4.8-10.8)
[2021-08-23 07:21] LABS: Anion Gap 17 mmol/L (10-20); BUN (Urea Nitrogen) 21 mg/dL (8.4-25.7); Calc. Creatinine Clearance 60 mL/min (70-130); Carbon Dioxide 22 mmol/L (23-31); Chloride 104 mmol/L (98-107); Glucose 90 mg/dL (83-110); Potassium 3.8 mmol/L (3.5-5.1); Sodium 139 mmol/L (136-145)
[2021-08-23] MEDS: carBAMazepine 200 MG TAB PO SCH ×5 (08:30→17:52)
[2021-08-23] MEDS: metFORMIN 500 MG TAB PO SCH ×2 (08:31→17:55)
[2021-08-23] MEDS: Atorvastatin Calcium 40 MG TAB PO SCH (08:55)
[2021-08-23] MEDS: Citalopram 20 MG TAB PO SCH (08:55)
[2021-08-23] MEDS: Donepezil HCl 10 MG TAB PO SCH ×2 (08:56→21:28)
[2021-08-23] MEDS: Famotidine 20 MG TAB PO SCH ×2 (08:56→21:28)
[2021-08-23] MEDS: Polyethylene Glycol 3350 17 GM Packet PO SCH (08:57)
[2021-08-23] MEDS: Tamsulosin HCl 0.4 MG CAP PO SCH (08:57)
[2021-08-23] MEDS: Lisinopril 10 MG TAB PO SCH (08:57)
[2021-08-23] MEDS: Finasteride 5 MG TAB PO SCH (08:57)
[2021-08-24] MEDS: carBAMazepine 200 MG TAB PO SCH ×3 (09:00→17:25)
[2021-08-24] MEDS: metFORMIN 500 MG TAB PO SCH ×2 (09:00→17:25)
[2021-08-24] MEDS: Atorvastatin Calcium 40 MG TAB PO SCH (09:00)
[2021-08-24] MEDS: Finasteride 5 MG TAB PO SCH (09:01)
[2021-08-24] MEDS: Donepezil HCl 10 MG TAB PO SCH ×2 (09:01→21:30)
[2021-08-24] MEDS: Citalopram 20 MG TAB PO SCH (09:01)
[2021-08-24] MEDS: Famotidine 20 MG TAB PO SCH ×2 (09:01→21:29)
[2021-08-24] MEDS: Lisinopril 10 MG TAB PO SCH (09:01)
[2021-08-24] MEDS: Tamsulosin HCl 0.4 MG CAP PO SCH (09:02)
[2021-08-24] MEDS: Polyethylene Glycol 3350 17 GM Packet PO SCH (09:02)
[2021-08-24] MEDS: Acetaminophen 500 MG TAB PO PRN (11:10)
[2021-08-25] MEDS: Donepezil HCl 10 MG TAB PO SCH ×2 (08:38→22:01)
[2021-08-25] MEDS: Finasteride 5 MG TAB PO SCH (08:38)
[2021-08-25] MEDS: Lisinopril 10 MG TAB PO SCH (08:39)
[2021-08-25] MEDS: metFORMIN 500 MG TAB PO SCH ×2 (08:39→17:08)
[2021-08-25] MEDS: Famotidine 20 MG TAB PO SCH ×2 (08:39→22:01)
[2021-08-25] MEDS: carBAMazepine 200 MG TAB PO SCH ×3 (08:39→17:08)
[2021-08-25] MEDS: Citalopram 20 MG TAB PO SCH (08:39)
[2021-08-25] MEDS: Atorvastatin Calcium 40 MG TAB PO SCH (08:39)
[2021-08-25] MEDS: Tamsulosin HCl 0.4 MG CAP PO SCH (08:39)
[2021-08-25] MEDS: Polyethylene Glycol 3350 17 GM Packet PO SCH (08:43)
[2021-08-25] MEDS: Acetaminophen 500 MG TAB PO PRN (17:04)
[2021-08-26] MEDS: metFORMIN 500 MG TAB PO SCH ×2 (07:54→17:56)
[2021-08-26] MEDS: Citalopram 20 MG TAB PO SCH (07:54)
[2021-08-26] MEDS: carBAMazepine 200 MG TAB PO SCH ×3 (07:54→17:55)
[2021-08-26] MEDS: Tamsulosin HCl 0.4 MG CAP PO SCH (07:54)
[2021-08-26] MEDS: Famotidine 20 MG TAB PO SCH ×2 (07:54→20:47)
[2021-08-26] MEDS: Lisinopril 10 MG TAB PO SCH (07:55)
[2021-08-26] MEDS: Donepezil HCl 10 MG TAB PO SCH ×2 (07:55→20:47)
[2021-08-26] MEDS: Atorvastatin Calcium 40 MG TAB PO SCH (07:56)
[2021-08-26] MEDS: Finasteride 5 MG TAB PO SCH (07:56)
[2021-08-26] MEDS: Polyethylene Glycol 3350 17 GM Packet PO SCH (07:57)
[2021-08-26] MEDS ORDERED: Ondansetron ODT 4 MG TAB SL PRN (11:15)
[2021-08-27] MEDS: Citalopram 20 MG TAB PO SCH (08:59)
[2021-08-27] MEDS: Tamsulosin HCl 0.4 MG CAP PO SCH (08:59)
[2021-08-27] MEDS: Finasteride 5 MG TAB PO SCH (08:59)
[2021-08-27] MEDS: metFORMIN 500 MG TAB PO SCH ×2 (08:59→17:48)
[2021-08-27] MEDS: Atorvastatin Calcium 40 MG TAB PO SCH (08:59)
[2021-08-27] MEDS: Famotidine 20 MG TAB PO SCH ×2 (08:59→20:45)
[2021-08-27] MEDS: Donepezil HCl 10 MG TAB PO SCH ×2 (09:00→20:45)
[2021-08-27] MEDS: carBAMazepine 200 MG TAB PO SCH ×3 (09:00→17:48)
[2021-08-27] MEDS: Lisinopril 20 MG TAB PO SCH (09:00)
[2021-08-27] MEDS: Polyethylene Glycol 3350 17 GM Packet PO SCH (09:01)
[2021-08-28 07:35] LABS: SARS-CoV-2 PCR by NAA Not Detected (NotDetected)
[2021-08-28] MEDS: Polyethylene Glycol 3350 17 GM Packet PO SCH (08:34)
[2021-08-28] MEDS: carBAMazepine 200 MG TAB PO SCH ×3 (08:34→17:04)
[2021-08-28] MEDS: Famotidine 20 MG TAB PO SCH ×2 (08:34→21:03)
[2021-08-28] MEDS: Citalopram 20 MG TAB PO SCH (08:34)
[2021-08-28] MEDS: metFORMIN 500 MG TAB PO SCH ×2 (08:35→17:04)
[2021-08-28] MEDS: Donepezil HCl 10 MG TAB PO SCH ×2 (08:35→21:03)
[2021-08-28] MEDS: Finasteride 5 MG TAB PO SCH (08:35)
[2021-08-28] MEDS: Tamsulosin HCl 0.4 MG CAP PO SCH (08:35)
[2021-08-28] MEDS: Lisinopril 20 MG TAB PO SCH (08:36)
[2021-08-28] MEDS: Atorvastatin Calcium 40 MG TAB PO SCH (08:36)
[2021-08-29] MEDS: Polyethylene Glycol 3350 17 GM Packet PO SCH (08:45)
[2021-08-29] MEDS: metFORMIN 500 MG TAB PO SCH ×2 (09:00→17:16)
[2021-08-29] MEDS: Donepezil HCl 10 MG TAB PO SCH ×2 (09:00→21:20)
[2021-08-29] MEDS: Famotidine 20 MG TAB PO SCH ×2 (09:01→21:20)
[2021-08-29] MEDS: Lisinopril 20 MG TAB PO SCH (09:01)
[2021-08-29] MEDS: Tamsulosin HCl 0.4 MG CAP PO SCH (09:01)
[2021-08-29] MEDS: carBAMazepine 200 MG TAB PO SCH ×3 (09:01→17:16)
[2021-08-29] MEDS: Finasteride 5 MG TAB PO SCH (09:02)
[2021-08-29] MEDS: Atorvastatin Calcium 40 MG TAB PO SCH (09:02)
[2021-08-29] MEDS: Citalopram 20 MG TAB PO SCH (09:02)
[2021-08-30] MEDS: Polyethylene Glycol 3350 17 GM Packet PO SCH (08:21)
[2021-08-30] MEDS: Donepezil HCl 10 MG TAB PO SCH ×2 (08:21→20:40)
[2021-08-30] MEDS: Tamsulosin HCl 0.4 MG CAP PO SCH (08:22)
[2021-08-30] MEDS: Finasteride 5 MG TAB PO SCH (08:22)
[2021-08-30] MEDS: Atorvastatin Calcium 40 MG TAB PO SCH (08:22)
[2021-08-30] MEDS: Famotidine 20 MG TAB PO SCH ×2 (08:22→20:40)
[2021-08-30] MEDS: Lisinopril 20 MG TAB PO SCH (08:23)
[2021-08-30] MEDS: metFORMIN 500 MG TAB PO SCH ×2 (08:23→17:41)
[2021-08-30] MEDS: carBAMazepine 200 MG TAB PO SCH ×3 (08:23→17:41)
[2021-08-30] MEDS: Citalopram 20 MG TAB PO SCH (08:23)
[2021-08-31 06:58] LABS: #Basophils 0.1 thou/uL (0.0-0.2); #Eosinphils 0.4 thou/uL (0.0-0.7); #Lymphocytes 1.9 thou/uL (1.20-3.40); #Monocytes 1.1 thou/uL (0.11-0.59); #Neutrophils 10.8 thou/uL (1.40-6.50); %Eosinophils 2.8 % (0.0-10.0); %Lymphocytes 13.2 % (21.0-51.0); %Monocytes 7.7 % (0.0-10.0); %Neutrophils 75.2 % (42.0-75.0); Hemoglobin 17.3 g/dL (14.0-18.0); Mean Corpuscular HGB CONC 32.6 g/dL (32.0-36.0); Mean Corpuscular Volume 98.2 fL (78.0-98.0); Mean Platelet Volume 6.9 fL (7.4-10.4); Platelet Count 291 thou/uL (130-400); RBC Distribution Width 11.9 % (11.5-14.5); White Blood Cell (WBC) Count 14.3 thou/uL (4.8-10.8)
[2021-08-31 07:10] LABS: Anion Gap 16 mmol/L (10-20); BUN (Urea Nitrogen) 40 mg/dL (8.4-25.7); Calc. Creatinine Clearance 47 mL/min (70-130); Calcium 10.9 mg/dL (7.8-10.44); Carbon Dioxide 24 mmol/L (23-31); Chloride 116 mmol/L (98-107); Glucose 130 mg/dL (83-110); Potassium 3.6 mmol/L (3.5-5.1); Sodium 152 mmol/L (136-145)
[2021-08-31] MEDS: Donepezil HCl 10 MG TAB PO SCH ×2 (09:49→20:38)
[2021-08-31] MEDS: Citalopram 20 MG TAB PO SCH (09:49)
[2021-08-31] MEDS: carBAMazepine 200 MG TAB PO SCH ×3 (09:49→17:28)
[2021-08-31] MEDS: metFORMIN 500 MG TAB PO SCH ×2 (09:50→17:28)
[2021-08-31] MEDS: Finasteride 5 MG TAB PO SCH (09:50)
[2021-08-31] MEDS: Polyethylene Glycol 3350 17 GM Packet PO SCH (09:50)
[2021-08-31] MEDS: Famotidine 20 MG TAB PO SCH ×2 (09:50→20:38)
[2021-08-31] MEDS: Tamsulosin HCl 0.4 MG CAP PO SCH (09:50)
[2021-08-31] MEDS: Atorvastatin Calcium 40 MG TAB PO SCH (09:50)
[2021-08-31] MEDS: Lisinopril 20 MG TAB PO SCH (09:50)
[2021-08-31] MEDS: Dextrose 5% in Water 1,000 ML IV SCH ×2 (13:16→20:37)
[2021-08-31 15:59] LABS: Anion Gap 22 mmol/L (10-20)
[2021-08-31 16:04] LABS: BUN (Urea Nitrogen) 45 mg/dL (8.4-25.7); Calc. Creatinine Clearance 26 mL/min (70-130); Calcium 11.1 mg/dL (7.8-10.44); Carbon Dioxide 18 mmol/L (23-31); Chloride 119 mmol/L (98-107); Glucose 115 mg/dL (83-110); Potassium 4.3 mmol/L (3.5-5.1); Sodium 155 mmol/L (136-145)
[2021-08-31] MEDS: Acetaminophen 500 MG TAB PO PRN (20:40)
[2021-09-01 06:49] LABS: Anion Gap 14 mmol/L (10-20); BUN (Urea Nitrogen) 48 mg/dL (8.4-25.7); Calc. Creatinine Clearance 39 mL/min (70-130); Calcium 11.1 mg/dL (7.8-10.44); Carbon Dioxide 25 mmol/L (23-31); Chloride 121 mmol/L (98-107); Glucose 136 mg/dL (83-110); Potassium 3.8 mmol/L (3.5-5.1); Sodium 156 mmol/L (136-145)
[2021-09-01] MEDS: Donepezil HCl 10 MG TAB PO SCH ×2 (08:49→20:13)
[2021-09-01] MEDS: metFORMIN 500 MG TAB PO SCH ×2 (08:49→17:29)
[2021-09-01] MEDS: Citalopram 20 MG TAB PO SCH (08:49)
[2021-09-01] MEDS: carBAMazepine 200 MG TAB PO SCH ×3 (08:49→17:29)
[2021-09-01] MEDS: Atorvastatin Calcium 40 MG TAB PO SCH (08:49)
[2021-09-01] MEDS: Polyethylene Glycol 3350 17 GM Packet PO SCH (08:50)
[2021-09-01] MEDS: Tamsulosin HCl 0.4 MG CAP PO SCH (08:50)
[2021-09-01] MEDS: Lisinopril 20 MG TAB PO SCH (08:50)
[2021-09-01] MEDS: Finasteride 5 MG TAB PO SCH (08:50)
[2021-09-01] MEDS: Famotidine 20 MG TAB PO SCH ×3 (08:51→20:14)
[2021-09-01 13:01] LABS: Anion Gap 14 mmol/L (10-20); BUN (Urea Nitrogen) 49 mg/dL (8.4-25.7); Calc. Creatinine Clearance 36 mL/min (70-130); Calcium 11.1 mg/dL (7.8-10.44); Carbon Dioxide 26 mmol/L (23-31); Chloride 119 mmol/L (98-107); Glucose 125 mg/dL (83-110); Potassium 3.4 mmol/L (3.5-5.1); Sodium 156 mmol/L (136-145)
[2021-09-01] MEDS: Dextrose 5% in Water 1,000 ML IV SCH (13:20)
[2021-09-01] MEDS ORDERED: Sodium Chloride 0.9% 10 ML ONE (13:25)
[2021-09-01 21:06] LABS: Anion Gap 14 mmol/L (10-20); BUN (Urea Nitrogen) 52 mg/dL (8.4-25.7); Calc. Creatinine Clearance 37 mL/min (70-130); Calcium 10.9 mg/dL (7.8-10.44); Carbon Dioxide 23 mmol/L (23-31); Chloride 120 mmol/L (98-107); Glucose 165 mg/dL (83-110); Potassium 3.7 mmol/L (3.5-5.1); Sodium 153 mmol/L (136-145)
[2021-09-02] MEDS: Dextrose 5% in Water 1,000 ML IV SCH ×4 (00:08→20:20)
[2021-09-02 06:56] LABS: Anion Gap 14 mmol/L (10-20); BUN (Urea Nitrogen) 49 mg/dL (8.4-25.7); Calc. Creatinine Clearance 37 mL/min (70-130); Calcium 10.4 mg/dL (7.8-10.44); Carbon Dioxide 22 mmol/L (23-31); Chloride 116 mmol/L (98-107); Glucose 157 mg/dL (83-110); Potassium 3.4 mmol/L (3.5-5.1); Sodium 149 mmol/L (136-145)
[2021-09-02] MEDS: carBAMazepine 200 MG TAB PO SCH ×3 (08:17→17:03)
[2021-09-02] MEDS: metFORMIN 500 MG TAB PO SCH ×2 (08:17→17:03)
[2021-09-02] MEDS: Citalopram 20 MG TAB PO SCH (08:18)
[2021-09-02] MEDS: Finasteride 5 MG TAB PO SCH (08:18)
[2021-09-02] MEDS: Atorvastatin Calcium 40 MG TAB PO SCH (08:18)
[2021-09-02] MEDS: Lisinopril 20 MG TAB PO SCH (08:18)
[2021-09-02] MEDS: Donepezil HCl 10 MG TAB PO SCH ×2 (08:18→21:09)
[2021-09-02] MEDS: Tamsulosin HCl 0.4 MG CAP PO SCH (08:19)
[2021-09-02] MEDS: Polyethylene Glycol 3350 17 GM Packet PO SCH (08:19)
[2021-09-02] MEDS ORDERED: Potassium Chloride 20 MEQ TAB PO SCH (09:00)
[2021-09-02 09:56] VITALS: BMI 24.4
[2021-09-02] MEDS: Famotidine 20 MG TAB PO SCH (21:09)
[2021-09-03] MEDS: Dextrose 5% in Water 1,000 ML IV SCH (07:03)
[2021-09-03] MEDS: carBAMazepine 200 MG TAB PO SCH ×2 (09:00→11:47)
[2021-09-03] MEDS: Citalopram 20 MG TAB PO SCH (09:13)
[2021-09-03] MEDS: Tamsulosin HCl 0.4 MG CAP PO SCH (09:13)
[2021-09-03] MEDS: metFORMIN 500 MG TAB PO SCH (09:14)
[2021-09-03] MEDS: Atorvastatin Calcium 40 MG TAB PO SCH (09:15)
[2021-09-03] MEDS: Finasteride 5 MG TAB PO SCH (09:15)
[2021-09-03] MEDS: Polyethylene Glycol 3350 17 GM Packet PO SCH (09:15)
[2021-09-03] MEDS: Donepezil HCl 10 MG TAB PO SCH (09:15)
[2021-09-03] MEDS: Lisinopril 20 MG TAB PO SCH (09:16)
[2021-09-03 09:24] VITALS: TEMP 97.9
[2021-09-03 13:22] VITALS: BP 103/59
== END 2021-09-03 15:43 | DRG 83 ==
LOC: NAV ACUTE 18:14
PROVIDERS: ADMIT Family Medicine; ATTEND Family Medicine
DX: S06.6X9A Traumatic subarachnoid hemorrhage with loss of consciousness of unspecified duration, initial encounter (principal); N17.9 Acute kidney failure, unspecified; E87.0 Hyperosmolality and hypernatremia; W19.XXXA Unspecified fall, initial encounter; R53.81 Other malaise; I10 Essential (primary) hypertension; E78.5 Hyperlipidemia, unspecified; F03.90 Unspecified dementia, unspecified severity, without behavioral disturbance, psychotic disturbance, mood disturbance, and anxiety; E11.9 Type 2 diabetes mellitus without complications; N40.0 Benign prostatic hyperplasia without lower urinary tract symptoms; Z96.651 Presence of right artificial knee joint; E86.0 Dehydration; E87.6 Hypokalemia; Z20.822 Contact with and (suspected) exposure to COVID-19; Y92.89 Other specified places as the place of occurrence of the external cause; Z86.718 Personal history of other venous thrombosis and embolism; Z90.49 Acquired absence of other specified parts of digestive tract; Z88.0 Allergy status to penicillin
CPT/HCPCS: 36416; 80048; 85025; 36415-59; J1815; J7070; U0003; U0005